=== PATIENT | male | born 1975 | race Caucasian/White ===

== ENCOUNTER 2018-06-01 09:31 | Emergency (ER) | payer OTHER ==
[2018-06-01 10:27] LABS: BASO # 0.1 10^3/uL (0.0-0.2); BASO % 0.4 % (0.0-1.0); EOS # 0.1 10^3/uL (0.0-0.50); EOS % 0.7 % (0.0-3.0); HEMATOCRIT 46.3 % (42.0-52.0); IMMATURE GRANULOCYTE % 0.7 % (0-3.0); LYMPH # 1.1 10^3/uL (1.5-4.5); LYMPH % 8.9 % (24.0-44.0); MEAN CORPUSCULAR HEMOGLOBIN 28.6 pg (27.0-33.0); MEAN CORPUSCULAR HGB CONC 34.6 g/dl (32.0-36.5); MEAN CORPUSCULAR VOLUME 82.8 fl (80.0-96.0); MONO # 0.6 10^3/uL (0.0-0.8); MONO % 4.8 % (0.0-5.0); NEUTROPHILS # 10.2 10^3/uL (1.8-7.7); NEUTROPHILS % 84.5 % (36.0-66.0); PLATELET COUNT, AUTOMATED 185 10^3/uL (150-450); RED BLOOD COUNT 5.59 10^6/uL (4.30-6.10); RED CELL DISTRIBUTION WIDTH 14.1 % (11.5-14.5); WHITE BLOOD COUNT 12.1 10^3/uL (4.0-10.0)
[2018-06-01] MEDS: NS 1,000 ML IV (10:34)
[2018-06-01 10:48] LABS: ANION GAP 6 MEQ/L (8-16); BLOOD UREA NITROGEN 14 MG/DL (7-18); CALCIUM LEVEL 8.5 MG/DL (8.5-10.1); CARBON DIOXIDE LEVEL 30 MEQ/L (21-32); CHLORIDE LEVEL 108 MEQ/L (98-107); CREATININE FOR GFR 1.19 MG/DL (0.70-1.30); GLOMERULAR FILTRATION RATE > 60.0 (>60); GLUCOSE, FASTING 95 MG/DL (70-100); POTASSIUM SERUM 3.8 MEQ/L (3.5-5.1); SODIUM LEVEL 144 MEQ/L (136-145)
[2018-06-01 10:50] LABS: KETONE, URINE AUTO RFX NEGATIVE (NEGATIVE); LEUKOCYTE ESTERASE UR AUTO RFX NEGATIVE (NEGATIVE); MUCUS, URINE RFX SMALL (NEGATIVE); NITRITE, URINE AUTO RFX NEGATIVE (NEGATIVE); RBC, URINE AUTO RFX TNTC /HPF (0-3); SPECIFIC GRAVITY UR AUTO RFX 1.018 (1.002-1.035); SQUAM EPITHELIAL CELL UR AURFX 0 /HPF (0-6); WBC, URINE AUTO RFX 8 /HPF (0-3)
[2018-06-01] MEDS: KETOROLAC 30 MG/ML VIAL (J1885) IV (11:51)
== END 2018-06-01 12:34 | disposition home or self-care (01) ==
LOC: M ED 09:31
DX: N20.1 Calculus of ureter (principal); I10 Essential (primary) hypertension; Z79.899 Other long term (current) drug therapy
CPT/HCPCS: J1885

== ENCOUNTER → 2020-05-02 | Outpatient (CLI) | payer OTHER ==
[~2020-05-02] MED LIST: IBUP-1022 PO; STRA100C PO; TELM1TAB35 PO; TRAZ-186 PO; ZOFR4TAB14 PO; metoprolol
--- NOTE | 2020-05-03 04:30 | REP ---
Clinical: Dyspnea. Technique: Axial noncontrast images from the thoracic inlet to the upper abdomen with coronal and sagittal re-formations. High-resolution images obtained on inspiration and expiration. Comparison: None. Findings: The bilateral lung robles are relatively well aerated, symmetric and essentially clear on both inspiration and expiration series. No consolidation, significant nodule or mass lesion. No significant air trapping identified. No effusion or pneumothorax. Tracheobronchial tree is patent. No evidence for reticulonodular interstitial disease. No adenopathy. The mediastinum demonstrates normal thoracic aorta, pulmonary vasculature, and heart/pericardium. Surrounding musculoskeletal structures are intact. Limited upper abdomen demonstrates cholelithiasis, small nonobstructing right renal calculi, hepatomegaly and hepatic steatosis. Impression: 1. No obvious mediastinal or pleuroparenchymal process appreciated. 2. Incidental upper abdominal findings including cholelithiasis. Small nonobstructing right renal calculi, hepatomegaly and fatty infiltration to the liver. Electronically Signed by Michael Krishnamurthy MD 05/03/2020 04:22 A
== END ==
LOC: M RAD 07:39
PROVIDERS: ATTEND Internal Medicine Pulmonary Disease
DX: R06.00 Dyspnea, unspecified (principal); K80.20 Calculus of gallbladder without cholecystitis without obstruction; N20.0 Calculus of kidney; R16.0 Hepatomegaly, not elsewhere classified; K76.0 Fatty (change of) liver, not elsewhere classified

== ENCOUNTER → 2020-05-18 | Outpatient (CLI) | payer OTHER ==
[~2020-05-18] MED LIST changes: +HYDR12.55 PO; +LISI40TA4 PO; +METHACHOLINE KIT (J7674) INH ONE
--- NOTE | 2020-05-18 11:36 | PFTRPT ---
Height: 73.00 Inches Weight: 259.00 Lbs BSA: 2.40 Diagnosis: R06.00 DATE OF STUDY: 05/18/2020 ORDERED BY: Dr. Doherty INTERPRETATION: Excellent technical quality. Under protocol, methacholine was administered. At a dose of 2.5 mg (13.875 CDUs), a 31% decline in the FEV1 was noted. PC of 0.47 is significant. Flow rates did return to baseline post bronchodilator administration. IMPRESSION: Positive methacholine challenge study. MTDD
== END ==
LOC: M CARPUL 10:53
PROVIDERS: ATTEND Internal Medicine Pulmonary Disease
DX: R06.00 Dyspnea, unspecified (principal)
CPT/HCPCS: 94070; J7674

== ENCOUNTER 2020-08-16 08:47 | Emergency (ER) | payer OTHER ==
[~2020-08-16] VITALS: Ht 190.5 cm; Wt 117.6 kg
[~2020-08-16 08:47] MED LIST changes: -HYDR12.55 PO; -LISI40TA4 PO; -METHACHOLINE KIT (J7674) INH ONE
[2020-08-16 08:48] VITALS: BP 152/97
[2020-08-16] MEDS ORDERED: HYDR12.55 PO (08:55)
[2020-08-16] MEDS ORDERED: LISI40TA PO (08:55)
--- NOTE | 2020-08-16 10:12 | REPVR ---
PROCEDURE INFORMATION: Exam: XR Right Foot Complete Exam date and time: 08/16/2020 9:58 AM Age: 44 years old Clinical indication: Foot; Right; Patient HX: Walking down stairs. Did not fall. [place] a sudden strain with severe pain. ; Additional info: Trauma TECHNIQUE: Imaging protocol: XR Right foot. Views: 3 or more views. COMPARISON: No relevant prior studies available. FINDINGS: Bones/joints: Bones are intact and the joint spaces are preserved. No acute fracture. No dislocation. Mild spurring off the posterior and plantar aspects of the calcaneus. Soft tissues: Soft tissues are unremarkable. IMPRESSION: No acute bony abnormality is identified. Electronically signed by: Michael Payton On 08/16/2020 10:11:53 AM
== END 2020-08-16 10:35 | disposition home or self-care (01) ==
LOC: M ED 08:47
DX: M72.2 Plantar fascial fibromatosis (principal); M79.671 Pain in right foot; I10 Essential (primary) hypertension; Z79.899 Other long term (current) drug therapy

== ENCOUNTER → 2021-11-13 | Outpatient (REF) ==
[~2021-11-13] MED LIST changes: +HYDR12.55 PO; +LISI40TA4 PO
--- NOTE | 2021-11-13 11:23 | REP ---
INDICATION: SOB PAIN COMPARISON: 01/09/2020 TECHNIQUE: PA and lateral. FINDINGS: The mediastinum and cardiac silhouette are normal. The lung robles are clear and without acute consolidation, effusion, or pneumothorax. The skeletal structures are intact and normal. IMPRESSION: No acute cardiopulmonary process. <Electronically signed by Michael Krishnamurthy > 11/13/21 [id number]
--- NOTE | 2021-11-13 11:28 | REP ---
INDICATION: SOB PAIN. COMPARISON: None. TECHNIQUE: PA, Graham, lateral, and SMV views. FINDINGS: Sinuses are well aerated and clear. No mucosal thickening or fluid levels are identified. No foreign body. Surrounding osseous structures are intact. IMPRESSION: Normal sinus radiograph series. <Electronically signed by Michael Krishnamurthy > 11/13/21 [id number]
--- NOTE | 2021-11-13 11:30 | REP ---
INDICATION: SOB PAIN COMPARISON: None. TECHNIQUE: AP, lateral, bilateral oblique views right and left foot. FINDINGS: The soft tissues, osseous structures and joint spaces are intact, symmetric and normal/age-appropriate. There is no evidence for acute fracture or dislocation. No overt arthritic changes are appreciated. Lateral views demonstrate small bilateral calcaneal heel spurs (right greater than left) and calcification at the insertion of the Achilles tendon on calcaneus. IMPRESSION: Essentially symmetric age-appropriate examination. <Electronically signed by Michael Krishnamurthy > 11/13/21 [id number]
== END ==
LOC: M PLAIMG 10:20
PROVIDERS: ATTEND Internal Medicine
DX: R06.02 Shortness of breath (principal); M79.671 Pain in right foot; M79.672 Pain in left foot

== ENCOUNTER → 2024-02-11 | Outpatient (CLI) | payer OTHER | LOC: M RAD 08:18 | PROVIDERS: ATTEND Physician Assistant | DX: K76.0 Fatty (change of) liver, not elsewhere classified (principal); R79.89 Other specified abnormal findings of blood chemistry; Z90.49 Acquired absence of other specified parts of digestive tract ==